=== PATIENT | female | born 1975 | race Caucasian/White ===

== ENCOUNTER → 2017-05-12 | Outpatient (CLI) | payer OTHER ==
--- NOTE | 2017-05-12 13:49 | XR ---
EXAMINATION TYPE: XR chest 2V DATE OF EXAM: 05/12/2017 COMPARISON: NONE HISTORY: Cough and congestion for 5 weeks TECHNIQUE: Frontal and lateral views of the chest are obtained. FINDINGS: There is no focal air space opacity, pleural effusion, or pneumothorax seen. The cardiac silhouette size is upper limits of normal. The osseous structures are intact. IMPRESSION: No acute cardiopulmonary process.
== END | disposition home or self-care (01) ==
LOC: RADXRYALE 11:59
PROVIDERS: ATTEND Internal Medicine
DX: R05 Cough (principal)
CPT/HCPCS: 71046

== ENCOUNTER → 2018-10-21 | Outpatient (CLI) | payer OTHER ==
--- NOTE | 2018-10-22 08:15 | MM ---
Reason for exam: screening (asymptomatic). Baseline mammogram. Physical Findings: Nurse Summary: 1cm nodule in the right breast at 12 o'clock (nurse kp). MG Screening Mammo w CAD Bilateral CC and MLO view(s) were taken. The breast tissue is heterogeneously dense. This may lower the sensitivity of mammography. No suspicious abnormality. These results were verbally communicated with the patient and result sheet given to the patient on 10/21/18. ASSESSMENT: Incomplete: need additional imaging evaluation, BI-RAD 0 RECOMMENDATION: Ultrasound of the right breast. (palpable)
--- NOTE | 2018-10-22 08:17 | USB ---
Reason for exam: additional evaluation requested from abnormal screening. Physical Findings: Breast exam preformed at baseline screening. US Breast Workup Limited RT Right limited breast ultrasound including focal area of concern, retroareolar and axilla demonstrates a 0.8 x 0.9 x 0.3cm oval, elongated hypoechoic lesion at 12 o'clock BB, corresponds to palpable, biopsy recommended. These results were verbally communicated with the patient and result sheet given to the patient on 10/21/18. ASSESSMENT: Suspicious, BI-RAD 4 RECOMMENDATION: Ultrasound core biopsy of the right breast. Called Dr. Gonzalez with mammographic findings and has scheduled an appointment for the patient for 12/16/18 at 10:[address] Kowalski. Biposy scheduled for 11/17/18 at 2:00. PRELIMINARY REPORT CALLED AND FAXED TO DR. KOWALSKI ON 10/22/18.
== END | disposition home or self-care (01) ==
LOC: RADMAMWWP 11:09
PROVIDERS: ATTEND Obstetrics & Gynecology
DX: Z12.31 Encounter for screening mammogram for malignant neoplasm of breast (principal); R92.8 Other abnormal and inconclusive findings on diagnostic imaging of breast
CPT/HCPCS: 77067

== ENCOUNTER → 2018-11-17 | Day surgery (SDC) | payer OTHER ==
[2018-11-17 14:04] VITALS: BMI 32.0
--- NOTE | 2018-11-17 15:57 | USB ---
EXAMINATION TYPE: US biopsy breast VAD RT, MG diagnostic mammo RT wo CAD DATE OF EXAM: 11/17/2018 CLINICAL HISTORY: R92.8 ABN Mammogram. TECHNIQUE: Ultrasound guided core biopsy of right breast for palpable abnormality. COMPARISON: 10/21/2018 FINDINGS: The procedure of ultrasound guided core biopsy was explained to the patient. Benefits, alt ernatives, and risks were discussed. An informed consent was then obtained. Preprocedural timeout w as performed. The patient was placed in supine positioning for imaging and for the procedure. The overlying skin w as prepped and draped in usual sterile fashion. Lidocaine buffered with bicarbonate was used as anes thetic into the skin and subcutaneous tissue up to the 0.8 x 0.9 x 0.3 cm palpable mass of the 12:00 position within the right breast. Under ultrasound guidance, a 14-gauge Bard biopsy gun device was used to obtain 4 core samples. Foll owing this, a coil-shaped biopsy marker was left at the site of biopsy. The patient tolerated the procedure well without any immediate complication. The patient was kept in the radiology department for short stay after the procedure and then discharged home in stable condi tion. Postprocedure mammogram demonstrates appropriate biopsy marker placement. IMPRESSION: Successful, uncomplicated ultrasound guided core biopsy of the 0.9 cm palpable mass at th e 12:00 position in the right breast, low suspicion, full pathology results to follow.
[2018-11-17 16:19] VITALS: BP 126/80; PULSE 54; RESP 16; TEMP 97.9
== END ==
LOC: RADUSWWP 13:05
PROVIDERS: ATTEND Surgery
DX: N60.31 Fibrosclerosis of right breast (principal); R92.8 Other abnormal and inconclusive findings on diagnostic imaging of breast
CPT/HCPCS: 88305; 77065; 19083; A4648; J2001

== ENCOUNTER → 2020-01-17 | Outpatient (CLI) | payer OTHER ==
--- NOTE | 2020-01-17 13:41 | US ---
EXAMINATION TYPE: US extremity nonvasc mass LT DATE OF EXAM: 01/17/2020 COMPARISON: NONE CLINICAL HISTORY: Left leg; R22.9. lump left medial lower leg for 1 month scanned within patient's area of concern, left lower leg, isoechoic area = 3.4 x 1.2 x 2.9cm Poorly defined subcutaneous hyperechoic lesion could reflect focal lipoma. Benign etiology suspected. IMPRESSION: As above. If this lesion becomes painful or enlargement then further investigation would be warranted.
== END | disposition home or self-care (01) ==
LOC: RADUSWWP 12:54
PROVIDERS: ATTEND Internal Medicine
DX: R22.42 Localized swelling, mass and lump, left lower limb (principal)

== ENCOUNTER → 2020-06-20 | Outpatient (CLI) | payer OTHER ==
--- NOTE | 2020-06-20 11:55 | US ---
EXAMINATION TYPE: US transvaginal DATE OF EXAM: 06/20/2020 COMPARISON: NONE CLINICAL HISTORY: 44-year-old female R10.2 pelvic pain, N93.8 DUB. TECHNIQUE: Transvaginal (TV). Date of LMP: 05-15-20 FINDINGS: EXAM MEASUREMENTS: Uterus: 9.5 x 4.1 x 4.9 cm Endometrial Stripe: 0.9 cm Right Ovary: obscured by overlying bowel gas Left Ovary: 2.5 x 2.5 x 2.2 cm 1. Uterus: Anteverted, probable anterior mid uterine body fibroid measuring 1.3 x 0.9 x 1.2cm. This is intramural and partially subserosal. 2. Endometrium: wnl 3. Right Ovary: Obscured by overlying bowel gas 4. Left Ovary: simple appearing cyst measuring 2.2 x 2.2 x 2.5cm 5. Bilateral Adnexa: wnl 6. Posterior cul-de-sac: wnl IMPRESSION: 1. Endometrial stripe measuring 9 mm thick. 2. Suggestion of an anterior mid uterine body intramural and partially subserosal fibroid measuring 1 .3 cm. 3. A 2.5 cm dominant follicle or functional cyst of the left ovary. 4. The right ovary could not be visualized.
== END | disposition home or self-care (01) ==
LOC: RADUSWWP 09:53
PROVIDERS: ATTEND Obstetrics & Gynecology
DX: N83.202 Unspecified ovarian cyst, left side (principal); D25.2 Subserosal leiomyoma of uterus; R93.89 Abnormal findings on diagnostic imaging of other specified body structures
CPT/HCPCS: 76830

== ENCOUNTER → 2022-02-14 | Outpatient (CLI) | payer OTHER ==
--- NOTE | 2022-02-17 09:22 | MM ---
Reason for Exam: Screening (asymptomatic). Last mammogram was performed 3 year(s) and 4 month(s) ago. Patient History: Menarche at age 13. First Full-Term at age 23. Patient has history of breast feeding. 11/17/2018, Benign Core Biopsy on the right side. Last menstrual period: 02/06/2022 Risk Values: Little 5 year model risk: 1.2%. NCI Lifetime model risk: 11.5%. Prior Study Comparison: 10/21/2018 Bilateral Screening Mammogram, MERGED WITH [facility]. 10/21/2018 Right Diagnostic Ultrasound, MERGED WITH [facility]. 11/17/2018 Right Diagnostic Mammogram, MERGED WITH [facility]. Tissue Density: The breast tissue is heterogeneously dense. This may lower the sensitivity of mammography. Findings: Analyzed By CAD. Anterior biopsy clip right breast is now present. There is no suspicious new group of microcalcifications or new suspicious mass in either breast. Overall Assessment: Benign, BI-RAD 2 Management: Screening Mammogram of both breasts in 1 year. A clinical breast exam by your physician is recommended on an annual basis and results should be correlated with mammographic findings. Electronically signed and approved by: Saji Clarke M.D.
== END | disposition home or self-care (01) ==
LOC: RADMAMWWP 13:41
PROVIDERS: ATTEND Obstetrics & Gynecology
DX: Z12.31 Encounter for screening mammogram for malignant neoplasm of breast (principal); Z98.890 Other specified postprocedural states
CPT/HCPCS: 77063; 77067